=== PATIENT | male | born 1975 | race Caucasian/White ===

== ENCOUNTER 2020-11-17 01:15 | Outpatient (CLI) | payer OTHER, SELFPAY ==
[2020-11-17 19:31] LABS: SARS-CoV-2 RNA PCR Negative
== END 2020-11-17 01:16 | disposition home or self-care (01) ==
LOC: ANHCOVIDDT 01:15
PROVIDERS: PCP Pediatrics; Visit Provider Plastic Surgery
DX: Z01.812 Encounter for preprocedural laboratory examination (principal); Z11.59 Encounter for screening for other viral diseases
CPT/HCPCS: 87635; C9803; U0003

== ENCOUNTER 2020-11-21 00:15 | Day surgery (SDC) | payer OTHER, SELFPAY ==
[2020-11-13 11:04] VITALS: BMI 27.8
[2020-11-21] VITALS (8 sets, daily range): BP systolic 115–141; BP diastolic 64–85; PULSE 68–125; RESP 14–20; TEMP 36.7; O2SAT 97–100; BMI 28.5
--- NOTE | 2020-11-21 09:25 | WPDHPUPDATE1 ---
History and Physical Update Update Date/Time: 11/21/20 09:25 History and Physical has been reviewed, including an updated exam of the patient. There are NO changes in the patient's condition. Risks, benefits, and alternatives have been discussed and questions answered. Patient agrees to proceed with procedure.
--- NOTE | 2020-11-21 12:45 | SUR.PREOP ---
patient states he does not want his /family updated unless it is an emergency
[2020-11-21] MEDS: LIDO 1%/EPINEPHRINE 1:100,000 50 ML VIAL INFILTRATE (15:18)
[2020-11-21] MEDS: BACITRACIN OINTMENT 15 GM TUBE 1 APPLIC TOPICAL (15:55)
--- NOTE | 2020-11-21 16:05 | PM.OP ---
Procedure Note - Brief Procedure Note - Brief Date of procedure: 11/21/20 Pre-op diagnosis: BCC Right Rim Of Ear Post-op diagnosis: same Procedure performed: 1 cm wedge excision of right ear with FS and complex repair 3 cm. Anesthesia: local Surgeon: Elliot Coates MD Estimated blood loss (mL): 2 Drains: No Packing: No Pathology: yes Complications: No immediate complications Condition: stable Disposition: same day
--- NOTE | 2020-11-21 17:07 | PM.PROC ---
Procedure Note - Detailed Date of procedure: 11/21/20 Pre-op diagnosis: BCC Right Rim Of Ear Post-op diagnosis: same Procedure performed: 1 cm wedge excision of basal cell carcinoma of the rim of the right ear with frozen section and complex repair 3 cm Description of procedure: The site on the patient's right ear was marked in holding area. He was taken to the operating room placed supine on the operating table. Time-out was held and confirmed. The ear and neck area were prepped and draped in usual fashion. The site was carefully identified and a wedge excision was marked on the ear. This area was infiltrated with 1% lidocaine with epinephrine the wedge excision was carried out and the specimen was marked at the most superior aspect for 12 o'clock. The specimen was sent to pathology. The pathologist reported of basal cell carcinoma with margins free. The ear was tailored with some cartilaginous resection toward the antihelix. We were able to rotate the wound margins [address] The perichondrium was repaired with 4-0 Vicryl at 2 sites. The skin flaps were elevated off the cartilage a little bit and advanced toward the midline of the wound. These were coapted with intradermal 4-0 Vicryl, several sites. The skin was then closed with interrupted 5 0 nylon. A satisfactory contour was achieved. The bacitracin dressing was applied without gauze. The patient is discharged home with instructions in wound care and follow-up and a prescription for hydrocodone 5/325 Anesthesia: local Surgeon: Elliot Coates MD Estimated blood loss (mL): 3 Drains: No Packing: No Pathology: yes Complications: No immediate complications Condition: stable Disposition: same day
== END 2020-11-21 16:17 | disposition home or self-care (01) ==
PROVIDERS: PCP Pediatrics; Visit Provider Plastic Surgery
PROC: (CPT 11641; principal; 2020-11-21 13:30)
DX: C44.212 Basal cell carcinoma of skin of right ear and external auricular canal (principal)
CPT/HCPCS: 11641; 13152; 88305; 88331; A9270; C9803; U0003

== ENCOUNTER → 2023-03-11 15:24 | Outpatient (CLI) | payer OTHER, SELFPAY ==
--- NOTE | ~2023-03-11 | XR_ITS ---
XR shoulder RT min 2V DATE: 03/11/2023 15:42 INDICATION: Generalized right shoulder pain following injury TECHNIQUE: 4 views COMPARISON: None FINDINGS: Normal alignment at the acromioclavicular and glenohumeral joints. No fracture or dislocati on, periosteal reaction or bone destruction or abnormal soft tissue calcification. IMPRESSION: Negative Reviewed, dictated and finalized at location B. IMPRESSION: Negative
== END ==
PROVIDERS: PCP Pediatrics; Visit Provider Nurse Practitioner Family
DX: S49.91XA Unspecified injury of right shoulder and upper arm, initial encounter (principal); R29.898 Other symptoms and signs involving the musculoskeletal system
CPT/HCPCS: 73030

== ENCOUNTER → 2023-04-02 15:30 | Outpatient (CLI) | payer OTHER, SELFPAY ==
--- NOTE | ~2023-04-02 | MR_ITS ---
EXAMINATION: MR shoulder RT wo con DATE: 04/02/2023 16:12 INDICATION: Right shoulder pain. TECHNIQUE: Magnetic resonance imaging (MRI) of the right shoulder was performed without intravenous c ontrast. Sequences included axial PD-weighted FS FSE, coronal oblique PD-weighted FS FSE and T2-weigh alda FS FSE, and sagittal oblique T2-weighted FS FSE and T1-weighted FSE. COMPARISON: Right shoulder radiographs 03/11/2023 FINDINGS: Coracoacromial arch: The acromion undersurface is convex in morphology (type IV). There is mild acromioclavicular joint os teoarthritis. No subacromial/subdeltoid bursitis. Rotator cuff: There is moderate supraspinatus and infraspinatus tendinopathy. Teres minor tendon is normal. Subscap ularis tendon is normal. No tear. The rotator cuff muscle bellies are normal. There is edema-like mar row signal intensity in humeral head adjacent to the greater tuberosity. Biceps tendon and glenoid labrum: Biceps tendon is in bicipital groove. There is mild intra-articular biceps tendinopathy. There is a t ear of glenoid labrum from 11:00 to 12:00 (SLAP tear). Fluid: There is no glenohumeral joint effusion. Bones/cartilage: Glenoid cartilage is normal. Humeral head cartilage is normal. IMPRESSION: 1. Moderate rotator cuff tendinopathy. No tear. 2. SLAP tear. 3. Mild acromioclavicular joint osteoarthritis. Reviewed, dictated and finalized at location E.
== END ==
PROVIDERS: PCP Nurse Practitioner Family; Visit Provider Nurse Practitioner Family
DX: S49.91XA Unspecified injury of right shoulder and upper arm, initial encounter (principal); R29.898 Other symptoms and signs involving the musculoskeletal system; M67.813 Other specified disorders of tendon, right shoulder; S43.431A Superior glenoid labrum lesion of right shoulder, initial encounter; M19.011 Primary osteoarthritis, right shoulder; X58.XXXA Exposure to other specified factors, initial encounter
CPT/HCPCS: 73221